=== PATIENT | male | born 1945 | race Two or more races ===

== ENCOUNTER 2018-08-27 17:47 | Inpatient (IN) | payer OTHER ==
[~2018-08-27] VITALS: Ht 182.9 cm; Wt 81.6 kg
== END 2018-09-08 16:30 | disposition home or self-care (01) | DRG 698 ==
LOC: ER 17:47 → SURH 08-28 12:43
PROVIDERS: ADMIT Internal Medicine
PROC: B246ZZZ Ultrasonography of Right and Left Heart (ICD-10-PCS; principal; 2018-08-29)
PROC: 8E0ZXY6 Isolation (ICD-10-PCS; 2018-08-29)
PROC: 4A12X4Z Monitoring of Cardiac Electrical Activity, External Approach (ICD-10-PCS; 2018-09-01)
PROC: 02HV33Z Insertion of Infusion Device into Superior Vena Cava, Percutaneous Approach (ICD-10-PCS; 2018-09-01)
DX: N32.2 Vesical fistula, not elsewhere classified (principal); A41.9 Sepsis, unspecified organism; N17.8 Other acute kidney failure; I48.92 Unspecified atrial flutter; N39.0 Urinary tract infection, site not specified; B37.89 Other sites of candidiasis; E78.49 Other hyperlipidemia; Z88.0 Allergy status to penicillin; Z79.01 Long term (current) use of anticoagulants; D72.828 Other elevated white blood cell count; E86.0 Dehydration; E87.8 Other disorders of electrolyte and fluid balance, not elsewhere classified

== ENCOUNTER 2018-09-23 12:17 | Inpatient (IN) | payer OTHER ==
[~2018-09-23] VITALS: Ht 185.4 cm; Wt 83.5 kg
== END 2018-10-02 16:16 | disposition home or self-care (01) | DRG 699 ==
LOC: MEDJ 12:17
PROVIDERS: Urology; ADMIT Internal Medicine
PROC: 02HV33Z Insertion of Infusion Device into Superior Vena Cava, Percutaneous Approach (ICD-10-PCS; 2018-09-23)
PROC: BW21Y0Z Computerized Tomography (CT Scan) of Abdomen and Pelvis using Other Contrast, Unenhanced and Enhanced (ICD-10-PCS; 2018-09-25)
PROC: 8E0ZXY6 Isolation (ICD-10-PCS; 2018-09-28)
PROC: 0T7C8ZZ Dilation of Bladder Neck, Via Natural or Artificial Opening Endoscopic (ICD-10-PCS; principal; 2018-09-28 13:00)
DX: N32.0 Bladder-neck obstruction (principal); N39.0 Urinary tract infection, site not specified; N17.8 Other acute kidney failure; N13.1 Hydronephrosis with ureteral stricture, not elsewhere classified; I48.92 Unspecified atrial flutter; N32.2 Vesical fistula, not elsewhere classified; E78.49 Other hyperlipidemia; N32.89 Other specified disorders of bladder; Z88.0 Allergy status to penicillin; B96.1 Klebsiella pneumoniae [K. pneumoniae] as the cause of diseases classified elsewhere; C61 Malignant neoplasm of prostate

== ENCOUNTER 2018-12-18 09:47 | Emergency (ER) | payer OTHER ==
[~2018-12-18] VITALS: Ht 170.2 cm; Wt 83.5 kg
[2018-12-18] MEDS ORDERED: NEURONTIN300 MG PO (15:25)
== END 2018-12-18 18:27 | disposition home or self-care (01) ==
LOC: ER 09:47
DX: N13.39 Other hydronephrosis (principal); R10.30 Lower abdominal pain, unspecified

== ENCOUNTER 2019-01-11 16:24 | Outpatient (CLI) | payer OTHER ==
[~2019-01-11 16:24] MED LIST: NEURONTIN300 MG PO
== END 2019-01-11 16:35 | disposition home or self-care (01) ==
LOC: LAB 16:24
DX: N30.00 Acute cystitis without hematuria (principal); C61 Malignant neoplasm of prostate

== ENCOUNTER 2021-08-14 09:37 | Outpatient (CLI) | payer OTHER | END 2021-08-14 09:38 | disposition home or self-care (01) | LOC: NUCLEAR 09:37 | PROVIDERS: ATTEND Internal Medicine | DX: G30.0 Alzheimer's disease with early onset (principal) ==